=== PATIENT | female | born 1950 | race Caucasian/White ===

== ENCOUNTER → 2016-02-16 | Outpatient (CLI) | payer MEDICARE, BC ==
--- NOTE | 2016-02-19 08:41 | MM ---
Reason for exam: screening (asymptomatic). Last mammogram was performed 1 year and 1 month ago. History: Patient is postmenopausal and has history of other cancer at age 51. Took hormonal contraceptives for 1 year 6 months beginning at age 21. Took estrogen for 22 years beginning at age 34. Physical Findings: A clinical breast exam by your physician is recommended on an annual basis and results should be correlated with mammographic findings. MG 3D Screening Mammo W/Cad Bilateral CC and MLO view(s) were taken. Prior study comparison: January 16, 2015, bilateral MG 3d screening mammo w/cad. December 06, 2013, bilateral MG screening mammo w CAD. There are scattered fibroglandular densities. Finding: There are typically benign round calcifications in the right breast. There is no discrete abnormality. ASSESSMENT: Benign, BI-RAD 2 RECOMMENDATION: Routine screening mammogram of both breasts in 1 year.
== END | disposition home or self-care (01) ==
LOC: RADMAMWWP 11:45
PROVIDERS: ATTEND Internal Medicine
DX: Z12.31 Encounter for screening mammogram for malignant neoplasm of breast (principal)
CPT/HCPCS: 77052; 77063; G0202

== ENCOUNTER → 2016-09-15 | Outpatient (CLI) | payer MEDICARE, BC ==
--- NOTE | 2016-09-15 08:30 | CT ---
EXAMINATION TYPE: CT cervical spine wo con DATE OF EXAM: 09/15/2016 COMPARISON: MRI of the cervical spine dated 07/28/2015 HISTORY: Neck pain. Rule out myelopathy CT DLP: 323.20 mGycm. Automated Exposure Control for Dose Reduction was Utilized. TECHNIQUE: CT scan of the cervical spine is obtained without contrast, axial images are obtained, sa gittal and coronal reformatted images are also reviewed. FINDINGS: Cervical spine is visualized in its entirety from C1 through upper thoracic levels. No evid ence of acute fracture or dislocation. There is a reversal of the usual cervical lordosis involving t he entirety of the cervical spine with the apex at C5. There is anterolisthesis of C4 on C5 (grade 1) without fracture and therefore likely degenerative in nature. Hemangiomas are present within the C3, C4 and C5 vertebral bodies. The facets at this level are not perched or jumped and appear to be fuse d bilaterally. Prevertebral soft tissue appears within normal limits. The C1-C2 articulation is with in normal limits on the coronal images. Multilevel disc desiccation and intervertebral disc space elias rowing is noted. C2-C3: Small disc osteophyte complex and facet arthropathy. No evidence of neuroforaminal or central canal stenosis. C3-C4 : Uncovertebral hypertrophy and mild facet arthropathy create moderate left neural foraminal na rrowing and mild right neural foraminal narrowing. No evidence of disc herniation. C4-C5: There is mild facet arthropathy and uncovertebral hypertrophy without central canal stenosis o r neural foraminal narrowing. Mild disc uncovering is seen centrally from the anterolisthesis of C4 o n C5. C5-C6: There is a right central disc herniation, progressed from the prior right eccentric disc bulge contacting the ventral thecal sac and creating mild spinal canal stenosis. Uncovertebral hypertrophy at this level creates mild bilateral neural foraminal narrowing. C6-C7: There is a broad-based disc bulge creating mild spinal canal stenosis as well as facet arthrop athy and uncovertebral hypertrophy creating mild right neural foraminal narrowing and moderate left n eural foraminal narrowing. Thyroid gland is felt within normal limits. Visualized lung apices demonstrate bilateral pleural pare nchymal apical scarring and a small degree of right posterior lateral calcific pleural plaquing. Spra y artifact from dental fillings partially obscures visualization of the oropharynx. A small amount of inspissated mucosal thickening is seen within the sphenoid sinus. IMPRESSION: 1. There is no acute fracture or dislocation evident in the cervical spine. 2. Right central disc herniation at C5-C6 creating mild spinal canal stenosis and mild bilateral neur al foraminal narrowing along with degenerative changes. 3. Multilevel degenerative disc disease of the cervical spine and reversed cervical lordosis with kyp hosis centered at C5. 4. Paranasal sinus disease with inspissated mucus in the sphenoid sinus.
== END | disposition home or self-care (01) ==
LOC: RADCTMAIN 07:45
PROVIDERS: ATTEND Internal Medicine Rheumatology
DX: M48.02 Spinal stenosis, cervical region (principal); M99.71 Connective tissue and disc stenosis of intervertebral foramina of cervical region; M50.222 Other cervical disc displacement at C5-C6 level; M47.812 Spondylosis without myelopathy or radiculopathy, cervical region; M50.31 Other cervical disc degeneration, high cervical region; M40.292 Other kyphosis, cervical region
CPT/HCPCS: 72125

== ENCOUNTER → 2017-04-07 | Outpatient (CLI) | payer MEDICARE, BC ==
--- NOTE | 2017-04-07 10:57 | BD ---
EXAMINATION TYPE: MG DEXA axial skeleton. DATE OF EXAM: 04/07/2017 CLINICAL HISTORY: Postmenopausal female. Osteoporosis screening. Height: 63.5 Weight: 173 FRAX RISK QUESTIONS: Alcohol (3 or more units per day): no Family History (Parent hip fracture): no Glucocorticoids (More than 3mos): not now (Ex: prednisone, prednisolone, methylprednisolone, dexamethasone, and hydrocortisone). History of Fracture in Adulthood: yes Secondary Osteoporosis: 1. Type 1 Diabetes: no 2. Hyperthyroidism: no 3. Menopause before 45: yes 4. Malnutrition: no 5. Chronic liver disease: no Rheumatoid Arthritis: no Current Tobacco Use: no RISK FACTORS HISTORY OF: Hip Fracture (Left): yes When: 1968 History of Wrist Fracture: yes When: as child Surgery to Spine: yes; 3 times When: late , 2005, 2007 Family History of Osteoporosis: yes Active: yes Diet low in dairy products/other sources of calcium: no Postmenopausal woman: yes Take estrogen and/or progesterone medications: not now How long: age [age] Lost more than 2 inches in height since high school:no, but possibly 2 inches Frequent falls: no Poor Health: somewhat Hyperparathyroidism: no Adrenal Insufficiency: no MEDICATIONS: Prednisone or other steroids: not now How Long: on & off for several years in past Thyroid Medications: yes Which medication: Synthroid How Long: since about 1997 Osteoporosis Medications: yes Which medication: Evista How Long: over 5 years Additional Medications: blood pressure meds Additional History: fibromyalgia, arthritis, asthma EXAM MEASUREMENTS: Bone mineral densitometry was performed using the [employer] System. Bone mineral density not measured about the Lumbar spine due to 3 previous back surgeries Bone mineral density about the R hip (g/cm2): 0.671 T Score values are as follows: -----R Neck: -2.6 -----R Total: -2.6 Bone mineral density has: Decreased -6.3% since study of: 01/16/2018 IMPRESSION: Osteoporosis (T Score less than -2.5). There is increased fracture risk and therapy is usually indicated based on age. Re-Screen 1-2 years. NOTE: T-SCORE=SD OF THE YOUNG ADULT MEAN.
--- NOTE | 2017-04-08 13:34 | MM ---
Reason for exam: screening (asymptomatic). Last mammogram was performed 1 year and 2 months ago. History: Patient is postmenopausal and has history of other cancer at age 51. Took hormonal contraceptives for 1 year 6 months beginning at age 21. Took estrogen for 22 years beginning at age 34. Physical Findings: A clinical breast exam by your physician is recommended on an annual basis and results should be correlated with mammographic findings. MG 3D Screening Mammo W/Cad Bilateral CC and MLO view(s) were taken. Prior study comparison: February 16, 2016, bilateral MG 3d screening mammo w/cad. January 16, 2015, bilateral MG 3d screening mammo w/cad. The breast tissue is heterogeneously dense. This may lower the sensitivity of mammography. No suspicious abnormality. No significant changes when compared with prior studies. ASSESSMENT: Negative, BI-RAD 1 RECOMMENDATION: Routine screening mammogram of both breasts in 1 year.
== END | disposition home or self-care (01) ==
LOC: RADMAMWWP 09:27
PROVIDERS: ATTEND Internal Medicine
DX: Z12.31 Encounter for screening mammogram for malignant neoplasm of breast (principal); M81.0 Age-related osteoporosis without current pathological fracture
CPT/HCPCS: 77063; 77067; 77080

== ENCOUNTER → 2017-07-03 | Outpatient (CLI) | payer MEDICARE, BC ==
--- NOTE | 2017-07-03 16:14 | XR ---
EXAMINATION TYPE: XR foot complete RT DATE OF EXAM: 07/03/2017 COMPARISON: NONE HISTORY: Nondisplaced fracture, toes caught and/or TECHNIQUE: 3 views right foot FINDINGS: There is a fracture of the distal diaphyseal proximal phalanx fourth digit. Soft tissue swe lling is over this site. Additional soft tissue swelling is at the distal third and fifth digits. Degenerative changes are at the first metacarpal tarsal phalangeal joint space. No additional fractur es are evident. IMPRESSION: 1. Fracture of the distal diaphyseal proximal phalanx fourth digit with soft tissue swelling over th e third fourth fifth digits.
== END | disposition home or self-care (01) ==
LOC: RADXRMAIN 12:09
PROVIDERS: ATTEND Internal Medicine
DX: S92.534A Nondisplaced fracture of distal phalanx of right lesser toe(s), initial encounter for closed fracture (principal); S92.514A Nondisplaced fracture of proximal phalanx of right lesser toe(s), initial encounter for closed fracture

== ENCOUNTER → 2018-02-04 | Outpatient (CLI) | payer MEDICARE, BC ==
--- NOTE | 2018-02-04 13:17 | XR ---
EXAMINATION TYPE: XR chest 2V DATE OF EXAM: 02/04/2018 COMPARISON: March 16, 2017 HISTORY: Shortness of breath TECHNIQUE: Frontal and lateral views of the chest are obtained. FINDINGS: Scattered senescent parenchymal changes noted. Hyperinflation compatible with COPD. No evidence for infiltrate. No evidence for atelectasis. Heart size is stable. Mediastinal structures are stable and grossly unremarkable. No evidence for hilar prominence. Degenerative changes dorsal spine. IMPRESSION: 1. No evidence for acute pulmonary disease.
== END | disposition home or self-care (01) ==
LOC: RADXRMAIN 12:43
PROVIDERS: ATTEND Internal Medicine
DX: Z01.818 Encounter for other preprocedural examination (principal)
CPT/HCPCS: 71046

== ENCOUNTER → 2018-08-16 | Outpatient (CLI) | payer MEDICARE ==
--- NOTE | 2018-08-18 08:48 | MM ---
Reason for exam: screening (asymptomatic). Last mammogram was performed 1 year and 4 months ago. History: Patient is postmenopausal and has history of other cancer at age 51. Took hormonal contraceptives for 1 year 6 months beginning at age 21. Took estrogen for 22 years beginning at age 34. Physical Findings: A clinical breast exam by your physician is recommended on an annual basis and results should be correlated with mammographic findings. MG 3D Screening Mammo W/Cad Bilateral CC and MLO view(s) were taken. Prior study comparison: April 07, 2017, bilateral MG 3d screening mammo w/cad. February 16, 2016, bilateral MG 3d screening mammo w/cad. There are scattered fibroglandular densities. No significant changes when compared with prior studies. ASSESSMENT: Negative, BI-RAD 1 RECOMMENDATION: Routine screening mammogram of both breasts in 1 year.
== END | disposition home or self-care (01) ==
LOC: RADMAMWWP 14:17
PROVIDERS: ATTEND Internal Medicine
DX: Z12.31 Encounter for screening mammogram for malignant neoplasm of breast (principal)
CPT/HCPCS: 77063; 77067

== ENCOUNTER → 2018-12-23 | Outpatient (CLI) | payer MEDICARE ==
--- NOTE | 2018-12-23 16:05 | CONS ---
CONSULTATION DATE OF SERVICE: 12/23/2018 This patient is a 68-year-old lady who has been evaluated in [facility] for feeling significantly tired for several months. Her sleep schedule is usually from around 9:30 or 10 p.m. until 6:30 or 7 a.m. Usually no problems with falling asleep, although she reads in the bedroom. She usually on the back position with occasional snoring witnessed by her . She may wake up from sleep with remembering of her dreams and some episodes of sweating. She wakes up from sleep once with nocturia. Usually she does not take any naps. Lancing Sleepiness Scale is 6. PAST MEDICAL HISTORY: Past medical history is positive for hypertension, hypothyroidism, asthma, osteoporosis and scoliosis, fibromyalgia, allergies. PAST SURGICAL HISTORY: 1. x3. 2. Surgical treatment of fracture of low jaw. MEDICATIONS: 1. Singulair. 2. Synthroid. 3. Tenormin. 4. Evista. 5. Celebrex. 6. B12. 7. Cetirizine. SOCIAL HISTORY: Positive for smoking in the past; quit 35 years ago. Alcohol consumption occasional. FAMILY HISTORY: Hypertension, stroke, fibromyalgia, arthritis, asthma, thyroid problems. REVIEW OF SYSTEMS: Episodes of tiredness. Awakenings from sleep with dreaming. PHYSICAL EXAMINATION: GENERAL: A pleasant lady without distress. VITAL SIGNS: BP 162/78 on the right arm and 138/77 on the left, HR 60, RR 16, height 5 feet 3-1/2 inches, weight 169 pounds. Body mass index 29.4. Temperature 97.8, oxygen saturation at room air 96%. HEENT: PERRLA, EOMI. Evaluation of oropharynx showed tongue protrudes midline. Moderately low position of soft palate. Mallampati III. Retrognathia 3 mm. NECK: Supple. No JVD. Thyroid is not palpable. Neck measures 13-1/2 inches in circumference. LUNGS: Clear to percussion and to auscultation. Good air exchange. No wheezing or rhonchi. HEART: S1, S2 regular. No murmurs, gallops or rubs. ABDOMEN: Slightly obese. EXTREMITIES: No clubbing or cyanosis. CAFE WORKER: Awake, alert, and oriented X3. Cranial nerves 2 to 7 intact. There is no fasciculation or atrophy. noted. No focal deficits observed. IMPRESSION: 1. Occasional snoring, awakenings from sleep with nocturia, moderately low position of soft palate, retrognathia; possible obstructive sleep apnea-hypopnea syndrome. 2. Overweight; borderline to obesity, body mass index 29.4. 3. Hypertension. 4. Hypothyroidism. 5. Asthma. 6. History of osteoporosis and scoliosis. 7. History of fibromyalgia. 8. Allergies. 9. Status post section x3. 10.Status post low jaw fracture bilaterally, status post surgical treatment. PLAN: 1. Polysomnography for evaluation of patient's breathing during sleep. 2. CPAP/BiPAP titration if sleep study confirms obstructive sleep apnea-hypopnea syndrome. 3. Preferable position during sleep on the side. 4. No driving if patient feels any sleepiness. 5. I will see patient for follow up visit to explain results of testing and following plan. Thank you very much for referring this patient for consultation. Sincerely, Andrew Mora MD, PhD, FAASM Diplomat of [employer] [facility] [place] MMODL / IJN: [id number] /
== END ==
LOC: SLEEP 13:59
PROVIDERS: ATTEND Internal Medicine
DX: R35.1 Nocturia (principal); R06.83 Snoring; E66.3 Overweight; I10 Essential (primary) hypertension; E03.9 Hypothyroidism, unspecified; J45.909 Unspecified asthma, uncomplicated; M81.0 Age-related osteoporosis without current pathological fracture; M41.9 Scoliosis, unspecified; M79.7 Fibromyalgia; Z88.9 Allergy status to unspecified drugs, medicaments and biological substances; Z98.890 Other specified postprocedural states; Z68.29 Body mass index [BMI] 29.0-29.9, adult; Z87.81 Personal history of (healed) traumatic fracture; Z87.891 Personal history of nicotine dependence; Z79.899 Other long term (current) drug therapy
CPT/HCPCS: 99211

== ENCOUNTER → 2019-04-01 | Outpatient (CLI) | payer MEDICARE ==
--- NOTE | 2019-04-01 09:00 | CT ---
EXAMINATION TYPE: CT shoulder LT wo con DATE OF EXAM: 04/01/2019 COMPARISON: None HISTORY: Lt AC Joint Arthritis CT DLP: 277.[address] of the left shoulder with reconstruction imaging. TECHNIQUE: Unenhanced CT of the right shoulder was performed with bone and soft tissue window setting s submitted in the axial coronal and sagittal planes. At a separate workstation 3-D TR imaging was o btained. FINDINGS: Left-sided glenohumeral prosthesis is in place. Streak artifact limits evaluation. Glenoid component screw appears to be fractured inferiorly. Superior screw appears to be intact. Humeral pros thesis appears to be well seated. No evidence for periprosthetic infection at this time. No evidence for acute fracture. AC joint arthropathy with bony fragmentation noted. No evidence for soft tissue m ass or destructive bony process. Visualized left lung appears to be clear. IMPRESSION: 1. Postoperative changes of the glenohumeral prosthesis as discussed above. No acute fractures are ev ident.
== END | disposition home or self-care (01) ==
LOC: RADCTMAIN 07:51
PROVIDERS: ATTEND Orthopaedic Surgery
DX: Z47.1 Aftercare following joint replacement surgery (principal); M19.012 Primary osteoarthritis, left shoulder; M25.512 Pain in left shoulder; Z96.612 Presence of left artificial shoulder joint; Z98.890 Other specified postprocedural states

== ENCOUNTER → 2019-06-15 | Outpatient (CLI) | payer MEDICARE ==
[2019-06-15 12:21] LABS: HCT 42.3 % (34.0-46.0); HGB 13.5 gm/dL (11.4-16.0); MCH 30.6 pg (25.0-35.0); MCV 95.5 fL (80.0-100.0); Mean Platelet Volume 8.1; Platelet Count 294 k/uL (150-450); RBC 4.43 m/uL (3.80-5.40); RDW 12.6 % (11.5-15.5); WBC 7.4 k/uL (3.8-10.6)
[2019-06-15 12:34] LABS: Appearance,Urine Clear (Clear); Bilirubin,Urine Negative (Negative); Blood,Urine Negative (Negative); Color,Urine Yellow; Glucose,Urine (UA) Negative (Negative); Ketones,Urine Negative (Negative); Leukocyte Esterase,Urine Small (Negative); Mucus,Urine Occasional /hpf; Nitrite,Urine Negative (Negative); PH, Urine 5.5 (5.0-8.0); Protein,Urine Negative (Negative); RBC,Urine 1 /hpf (0-5); Squamous Epithelial Cell,Urine <1 /hpf (0-4); Urobilinogen,Urine <2.0 mg/dL (<2.0); WBC,Urine 8 /hpf (0-5)
[2019-06-15 18:33] LABS: African American GFR (CKD) 59.3 (60.0-200.0); Albumin 4.4 g/dL (3.80-4.90); Albumin/Globulin Ratio 1.69 (1.60-3.17); Anion Gap 11.1 mmol/L (4.00-12.00); BUN/Creat Ratio 19.09 Ratio (12.00-20.00); Calcium 9.5 mg/dL (8.7-10.3); Carbon Dioxide 25.9 mmol/L (21.6-31.8); Globulin 2.6 g/dL (1.6-3.3); Non-African American GFR(CKD) 51.2 (60.0-200.0); Potassium 4.8 mmol/L (3.5-5.5); Total Bilirubin 0.7 mg/dL (0.3-1.2)
== END | disposition home or self-care (01) ==
LOC: LABWHC1 11:38
PROVIDERS: ATTEND Internal Medicine
DX: Z01.812 Encounter for preprocedural laboratory examination (principal); R00.1 Bradycardia, unspecified
CPT/HCPCS: 36415; 80053; 81001; 85027; 87070; 93005

== ENCOUNTER → 2019-12-27 | Outpatient (CLI) | payer MEDICARE ==
--- NOTE | 2019-12-27 14:17 | BD ---
EXAMINATION TYPE: Axial Bone Density DATE OF EXAM: 12/27/2019 COMPARISON: 04/07/2017 CLINICAL HISTORY: Height: 63 IN Weight: 169 LBS FRAX RISK QUESTIONS: Secondary Osteoporosis: 3. Menopause before 45: PARTIAL HYST AGE 34 RISK FACTORS HISTORY OF: Hip Fracture (Left): AGE 18 History of Wrist Fracture: JOHN AGE 8 Surgery to Spine: 3 SURGERIES SINCE 1997 Family History of Osteoporosis: YES 2 SISTERS Active: YES Postmenopausal woman: PARTIAL HYST AGE 34 Take estrogen and/or progesterone medications: NOT NOW How long: PREVIOUSLY TOOK FOR 10 YEARS MEDICATIONS: Thyroid Medications: YES Which medication: Synthroid How Lon+ YEARS Osteoporosis Medications: YES Which medication: Evista How Lon+ Additional Medications: EVISTA, SYNTHROID, B12, CELEBREX, SINGULAIR, ATENOLOL, EXAM MEASUREMENTS: Bone mineral densitometry was performed using the [employer] System. 3 SPINE SURGERIES ON L SPINE SINCE 1997 LT HIP FX AGE 18 Bone mineral density about the R hip (g/cm2): 0.653 T Score values are as follows: -----R Neck: -2.8 -----R Total: -2.6 Bone mineral density has: Increased 0.1% since study of: 04/07/2017 JOHN WRIST FX AGE 8 IMPRESSION: Osteoporosis (T Score less than -2.5). There is increased fracture risk and therapy is usually indicated based on age. Re-Screen 1-2 years. NOTE: T-SCORE=SD OF THE YOUNG ADULT MEAN.
--- NOTE | 2019-12-29 08:25 | MM ---
Reason for exam: screening (asymptomatic). Last mammogram was performed 1 year and 4 months ago. History: Patient is postmenopausal and has history of other cancer at age 51. Took hormonal contraceptives for 1 year 6 months beginning at age 21. Took estrogen for 22 years beginning at age 34. Physical Findings: A clinical breast exam by your physician is recommended on an annual basis and results should be correlated with mammographic findings. MG 3D Screening Mammo W/Cad Bilateral CC and MLO view(s) were taken. Prior study comparison: August 16, 2018, bilateral MG 3d screening mammo w/cad. April 07, 2017, bilateral MG 3d screening mammo w/cad. There are scattered fibroglandular densities. Focal asymmetry right upper outer quadrant. This finding is changed when compared with previous exams. ASSESSMENT: Incomplete: need additional imaging evaluation, BI-RAD 0 RECOMMENDATION: Special view mammogram of the right breast. If lesion persists on supplemental views, image directed ultrasound is recommended. [facility] will attempt to contact patient to return for supplemental views and ultrasound if indicated.
== END | disposition home or self-care (01) ==
LOC: RADMAMWWP 07:52
PROVIDERS: ATTEND Internal Medicine
DX: Z12.31 Encounter for screening mammogram for malignant neoplasm of breast (principal); M81.0 Age-related osteoporosis without current pathological fracture
CPT/HCPCS: 77063; 77067; 77080

== ENCOUNTER → 2020-01-11 | Outpatient (CLI) | payer MEDICARE ==
--- NOTE | 2020-01-11 11:02 | MM ---
Reason for exam: additional evaluation requested from abnormal screening. Last mammogram was performed less than 1 month ago. History: Patient is postmenopausal and has history of other cancer at age 51. Took hormonal contraceptives for 1 year 6 months beginning at age 21. Took estrogen for 22 years beginning at age 34. Physical Findings: Nurse did not find any significant physical abnormalities on exam. MG 3D Work Up W/Cad RT Spot compression CC, spot compression MLO, and ML view(s) were taken of the right breast. Prior study comparison: December 27, 2019, bilateral MG 3d screening mammo w/cad. August 16, 2018, bilateral MG 3d screening mammo w/cad. There is no discrete abnormality. These results were verbally communicated with the patient and result sheet given to the patient on 01/11/20. ASSESSMENT: Negative, BI-RAD 1 RECOMMENDATION: Return to routine screening mammogram schedule for both breasts.
== END | disposition home or self-care (01) ==
LOC: RADMAMWWP 10:14
PROVIDERS: ATTEND Internal Medicine
DX: R92.8 Other abnormal and inconclusive findings on diagnostic imaging of breast (principal)
CPT/HCPCS: 77065; G0279; 77061

== ENCOUNTER → 2020-02-09 | Outpatient (CLI) | payer MEDICARE ==
--- NOTE | 2020-02-09 09:45 | US ---
EXAMINATION TYPE: US kidneys/renal and bladder DATE OF EXAM: 02/09/2020 COMPARISON: CLINICAL HISTORY: R94.4 Abnormal results of kidney function studies. abnormal labs. No pain. EXAM MEASUREMENTS: Right Kidney: 9.3 x 4.1 x 3.8 cm Left Kidney: 10.1 x 3.7 x 4.2 cm Right Kidney: Medial anechoic lesion at hilum - 1.1 x 1.0 cm Left Kidney: No hydronephrosis or masses seen Bladder: distended, anechoic Right jet seen IMPRESSION: 1. Small cyst may be in the peripelvic region of the right kidney.
== END | disposition home or self-care (01) ==
LOC: RADUSWWP 08:42
PROVIDERS: ATTEND Internal Medicine
DX: N28.1 Cyst of kidney, acquired (principal)
CPT/HCPCS: 76770

== ENCOUNTER → 2020-03-23 | Outpatient (CLI) | payer MEDICARE | END | disposition home or self-care (01) | LOC: LABWHC1 11:56 | PROVIDERS: ATTEND Orthopaedic Surgery | DX: M19.012 Primary osteoarthritis, left shoulder (principal); M75.102 Unspecified rotator cuff tear or rupture of left shoulder, not specified as traumatic; Z96.612 Presence of left artificial shoulder joint | CPT/HCPCS: 36415; 82306 ==

== ENCOUNTER → 2021-03-11 | Outpatient (CLI) | payer MEDICARE ==
--- NOTE | 2021-03-11 22:06 | NM ---
EXAMINATION TYPE: NM parathyroid w/spect DATE OF EXAM: 03/11/2021 COMPARISON: NONE HISTORY: Hyperparathyroidism TECHNIQUE: Following administration of 24.0 mCi Tc99m Sestamibi. Anterior projection images of the neck and ches t were obtained 10 minutes and 3.25 hours post injection. SPECT images of the neck and chest were ob tained and reconstructed in three axes. FINDINGS: Thyroid tracer washout: Delayed images demonstrate near-complete tracer washout from the thyroid. Parathyroid uptake: None. The delayed images do not demonstrate any focal abnormal persistent uptake in the region of the parathyroid glands to suggest parathyroid adenoma. Normal uptake: There is physiological tracer uptake in the parotid and submandibular glands bilateral ly. IMPRESSION: Normal parathyroid imaging study. No evidence for suspicious residual uptake to suggest mediastinal p arathyroid adenoma
== END | disposition home or self-care (01) ==
LOC: RADNMMAIN 10:45
PROVIDERS: ATTEND Internal Medicine
DX: E21.3 Hyperparathyroidism, unspecified (principal)
CPT/HCPCS: 78071; A9500

== ENCOUNTER 2021-03-27 13:56 | Day surgery (SDC) | payer MEDICARE ==
[2021-03-26 12:03] VITALS: BMI 29.2
[~2021-03-27 13:56] MED LIST: MOXIFLOXACIN HCL 0.5% DROPS 3 ML BTL OP PRN; TETRACAINE 0.5% OPHTH (PF) DROPS 4 ML BTL OP PRN; TIMOLOL 0.5% OPHTH DROPS 5 ML BTL OP PRN
[2021-03-27] MEDS: CYCLOPENTOLATE 1% OPHTH SOLN 2 ML BTL OP PRN ×3 (15:00→15:20)
[2021-03-27] MEDS: PHENYLEPHRINE 2.5% OPHTH DRP 2ML OP PRN ×3 (15:05→15:25)
[2021-03-27 15:12] VITALS: TEMP 97.2
[2021-03-27] MEDS ORDERED: LACTATED RINGERS 1,000 ML IV ONE (15:18)
[2021-03-27] MEDS ORDERED: LIDOCAINE 1% (10MG/ML) FOR IV START INTRADERMA ONE (15:31)
[2021-03-27] MEDS ORDERED: fentaNYL (PF) 50 MCG/ML 2 ML AMP ONE (16:05)
[2021-03-27] MEDS ORDERED: MIDAZOLAM 2 MG/2 ML VIAL ONE (16:05)
[2021-03-27] MEDS ORDERED: HYALURONATE SODIUM INTRAOCULAR 1 EACH SYRINGE (12MG/ML) INTRAOCULA ONE (16:21)
[2021-03-27] MEDS ORDERED: BALANCED SALT IRRIG SOLN COMB2 15 ML IRRIG.SOLN INTRAOCULA ONE (16:21)
[2021-03-27] MEDS ORDERED: LIDOCAINE 1% (PF) 10MG/ML VIAL SQ ONE (16:22)
[2021-03-27] MEDS ORDERED: EPINEPHrine (PF) 0.3 ML in BALANCED SALT IRRIG SOLN COMB2 500 ML IRRIGATION ONE (16:22)
--- NOTE | 2021-03-27 16:35 | P.OP ---
Date of Procedure: 03/27/21 Preoperative Diagnosis: NS & CS & PSC Postoperative Diagnosis: same Procedure(s) Performed: PIOL OS Implants: [id number] 15.50 Anesthesia: MAC Surgeon: Stanley Lang Pathology: none sent Condition: stable Disposition: same day Indications for Procedure: blurry vision Operative Findings: no complications
[2021-03-27 16:56] VITALS: BP 147/80; PULSE 48; RESP 16
--- NOTE | 2021-03-27 18:33 | OP ---
OPERATIVE REPORT DATE OF SURGERY: 03/27/2021 PREOPERATIVE DIAGNOSIS: Nuclear sclerosis, cortical sclerosis, posterior subcapsular cataract. POSTOPERATIVE DIAGNOSIS: Nuclear sclerosis, cortical sclerosis, posterior subcapsular cataract. OPERATION: Phacoemulsification of cataract and intraocular lens implant of the left eye ESTIMATED BLOOD LOSS: Zero. SPECIMEN TAKEN: None. NARRATIVE: After obtaining the appropriate consent, the patient was brought to the Operating Room where the patient was placed under cardiac monitoring and prepped and draped in the usual sterile manner. At the 5 o'clock position a 15 degree super sharp blade was used to create a paracentesis followed by instillation of 1% Xylocaine MPF 50:50 mix with BSS into the anterior chamber. This was followed by Amvisc to stabilize the anterior chamber. At the 3 o'clock position a self-sealing corneal flap incision was created using 2.8 mm cristian keratome. A cystotome was used to initiate a continuous tear capsulorrhexis which was completed with the Utrata forceps. A Binkhorst cannula was used to hydrodissect the lens nucleus followed by hydrodelineation. Phacoemulsification of the lens was performed utilizing phacochop in 28 seconds at 13% power. The remaining cortical material was removed using the irrigation aspiration mode followed by additional 1% Xylocaine MPF into the anterior chamber followed by viscoelastic to stabilize the capsular bag. A [employer]ch [employer] Lomb MX60E 15.5 diopter posterior chamber intraocular lens was placed into the capsular bag without difficulty. The remaining viscoelastic material was removed from the anterior chamber with the irrigation/aspiration. Balanced salt solution was used to normalize the intraocular pressure. The incision was checked for watertight integrity. The patient then received two drops of 0.5% timolol followed by two drops Vigamox, was lightly patched and shielded in the usual manner. There were no complications from the procedure. The patient tolerated the procedure well and was returned to recovery in good condition. MMODL / IJN: [id number] /
== END 2021-03-27 17:07 | disposition home or self-care (01) ==
LOC: OR 13:56
PROVIDERS: ATTEND Ophthalmology
DX: H25.12 Age-related nuclear cataract, left eye (principal)
CPT/HCPCS: 66984; C1780; J2250; J0171; J3010; J2001

== ENCOUNTER → 2021-04-08 | Outpatient (CLI) | payer MEDICARE ==
--- NOTE | 2021-04-11 10:21 | P.HOLTER ---
This is a report on the 24 hour Holter monitor Baseline EKG showed sinus rhythm. Patient remained in sinus rhythm with an average heart rate of 58 bpm. The minimum is 45 and maximum is 98. Patient had occasional APCs and PVCs. Had a brief run of SVT consisting of 5 beats. The rate of 116. No Sigmund bradycardia arrhythmias were noted. Patient diary did not mention any cardiac symptoms. Final impression: #1. Sinus rhythm. #2. Occasional APCs. #3. Occasional PVCs. #4. Short bursts of SVT . #5. No sustained ventricular arrhythmias. #6. Patient did not report any cardiac symptoms
== END | disposition home or self-care (01) ==
LOC: RADECHMAIN 07:38
PROVIDERS: ATTEND Internal Medicine
DX: I49.3 Ventricular premature depolarization (principal)
CPT/HCPCS: 93225; 93226

== ENCOUNTER → 2021-04-10 | Outpatient (CLI) | payer MEDICARE ==
[~2021-04-10] MED LIST changes: +AMINOPHYLLINE 500 MG/20 ML VIAL IV ONE; -MOXIFLOXACIN HCL 0.5% DROPS 3 ML BTL OP PRN; +REGADENOSON 0.4 MG/5 ML SYRINGE IV PRN; -TETRACAINE 0.5% OPHTH (PF) DROPS 4 ML BTL OP PRN; -TIMOLOL 0.5% OPHTH DROPS 5 ML BTL OP PRN
--- NOTE | 2021-04-10 12:24 | P.STRESS ---
- Stress Test Note Stress Test Results/Findings: Exam Performed: NM stress lexiscan cardiolite Exam Date: 04/10/21 Reason for Exam: BRADYCARDIA Height: 5 ft 3 in Weight: 74.843 kg Protocol: LEXISCAN CARDIOLITE Stage: NA Duration of Exercise: NA Resting Heart Rate: 45 Resting Blood Pressure: 114/68 Maximum Achieved Heart Rate: 88 Maximum Achieved Blood Pressure: 138/83 85% PMHR: 127 100% PMHR: 149 METS: NA Technologist Comment: Stress Test Results/Findings: This is a 70-year-old female with history of hypertension, hypercholesterolemia and COPD and smoking history, being evaluated for cardiac status. Stress data: Baseline EKG showed sinus bradycardia. Blood pressure at rest is 114/68, pulse rate of 45. A standard dose of Lexiscan was infused EKGs taken during and after infusion did not reveal any significant changes from baseline. Patient developed mild chest pressure, nausea and headache and was given Aminophyllin, IV about 100 mg. No Final impression: #1. Negative Lexiscan stress test #2. Report on the nuclear images to be provided by the radiologist
--- NOTE | 2021-04-10 14:25 | NM ---
EXAMINATION TYPE: NM stress lexiscan cardiolite DATE OF EXAM: 04/10/2021 COMPARISON: NONE HISTORY: R00.1 BRADYCARDIA, UNSPECIFIED TECHNIQUE: After the intravenous administration of 9.87 mCi Tc 99m Sestamibi - Cardiolite resting SP ECT images acquired 45 minutes post injection. The patient received 0.4mg Lexiscan, 24.0 mCi Tc 99m Sestamibi - Stress images obtained [address] injection FINDINGS: Review of stress and rest SPECT images demonstrates decreased perfusion involving the cardiac apex on stress images. Stress-induced ischemia is not excluded. Gated analysis shows normal wall motion with an estimated left ventricular ejection fraction of 66 %. IMPRESSION: I cannot exclude stress-induced ischemia involving the cardiac apex. Please correlate clinically.
== END | disposition home or self-care (01) ==
LOC: RADNMMAIN 08:40
PROVIDERS: ATTEND Internal Medicine
DX: R00.1 Bradycardia, unspecified (principal)
CPT/HCPCS: 93017; 78452; A9500; J2785

== ENCOUNTER → 2021-05-01 | Outpatient (CLI) | payer MEDICARE ==
[2021-05-01 18:27] LABS: HCT 39.7 % (37.2-46.3); HGB 12.5 g/dL (12.0-15.0); MCH 30.1 pg (27.0-32.0); MCHC 31.5 g/dL (32.0-37.0); MCV 95.7 fL (80.0-97.0); Mean Platelet Volume 10.7 fL (9.5-12.2); NRBC Per 100 WBC 0 /100 WBCS (0.0-0.0); Platelet Count 321 X 10*3/uL (140-440); RBC 4.15 X 10*6/uL (4.10-5.20); RDW 12.4 % (11.5-14.5); WBC 5.78 X 10*3/uL (4.50-10.00)
[2021-05-01 18:42] LABS: African American GFR (CKD) 65.6 (60.0-200.0); Anion Gap 11.9 mmol/L (10.00-18.00); Blood Urea Nitrogen 14.3 mg/dL (9.0-27.0); Carbon Dioxide 25.1 mmol/L (20.0-27.5); Non-African American GFR(CKD) 56.6 (60.0-200.0); Potassium 4.3 mmol/L (3.5-5.5)
== END | disposition home or self-care (01) ==
LOC: LABPAT 13:18
PROVIDERS: ATTEND Internal Medicine Interventional Cardiology
DX: Z01.812 Encounter for preprocedural laboratory examination (principal); R94.39 Abnormal result of other cardiovascular function study
CPT/HCPCS: 80051; 82565; 84520; 85027

== ENCOUNTER → 2021-11-15 | Outpatient (CLI) | payer MEDICARE ==
--- NOTE | 2021-11-18 09:17 | MM ---
Reason for Exam: Screening (asymptomatic). Last mammogram was performed 1 year(s) and 11 month(s) ago. Patient History: Menarche at age 11. First Full-Term at age 21. Hysterectomy at age 34. Postmenopausal. Patient has history of breast feeding. Other cancer, age 51. Estrogen, from age 34 until age 54. Hormonal Contraceptives for 1 year, 6 months, from age 21 until age 22. Risk Values: Valarie 5 year model risk: 1.6%. NCI Lifetime model risk: 4.1%. Prior Study Comparison: 08/16/2018 Bilateral Screening Mammogram, [facility]. 12/27/2019 Bilateral Screening Mammogram, [facility]. 01/11/2020 Right Diagnostic Mammogram, [facility]. Tissue Density: There are scattered fibroglandular densities. Findings: Analyzed By CAD. No suspicious groups of microcalcifications, spiculated or lobular masses, architectural distortion or other secondary signs of malignancy are mammographically apparent. Overall Assessment: Benign, BI-RAD 2 Management: Screening Mammogram of both breasts in 1 year. A negative mammogram report should not preclude additional follow up of suspicious palpable abnormalities. Patient should continue monthly self breast exam. A clinical breast exam by your physician is recommended on an annual basis and results should be correlated with mammographic findings. Electronically signed and approved by: Austin Fajardo D.O. Radiologis
== END | disposition home or self-care (01) ==
LOC: RADMAMWWP 14:42
PROVIDERS: ATTEND Internal Medicine
DX: Z12.31 Encounter for screening mammogram for malignant neoplasm of breast (principal)
CPT/HCPCS: 77063; 77067

== ENCOUNTER → 2022-03-11 | Outpatient (CLI) | payer MEDICARE ==
[2022-03-11 15:38] LABS: LDL Cholesterol,Calculated 72.9 mg/dL (0.0-131.0); VLDL Calculation 10.76 mg/dL (5.00-40.00)
== END | disposition home or self-care (01) ==
LOC: LABWHC1 08:43
PROVIDERS: ATTEND Nurse Practitioner Adult Health
DX: E78.2 Mixed hyperlipidemia (principal)
CPT/HCPCS: 36415; 80061

== ENCOUNTER → 2022-11-20 | Outpatient (CLI) | payer MEDICARE ==
--- NOTE | 2022-11-20 15:01 | BD ---
EXAMINATION TYPE: Axial Bone Density DATE OF EXAM: 11/20/2022 CLINICAL HISTORY: 72 years old Female. ICD-10 CODE: M81.0 age related osteoporosis Height: 63.5 inches Weight: 166.0 pounds FRAX RISK QUESTIONS: Family History (Parent hip fracture): no History of Fracture in Adulthood: yes, bilat wrist, left hip Secondary Osteoporosis: yes 3. Menopause before 45: yes, 32 Rheumatoid Arthritis: no RISK FACTORS HISTORY OF: Hip Fracture (Left): yes When: 1968 Spine Fracture: yes,x3 When: 2005 History of Wrist Fracture: yes, bilateral When: long ago Surgery to Spine/Hip(left)): yes When: 1989, 2005 2007 Family History of Osteoporosis: yes, father,2 sisters Active: yes Diet low in dairy products/other sources of calcium: no Postmenopausal woman: yes Lost more than 2 inches in height since high school: no Frequent falls: no Poor Health: no MEDICATIONS: Thyroid Medications: yes Which medication: Synthroid How Lon+ years Osteoporosis Medications: yes Which medication: Prolia How Lon+ years Additional Medications: yes hbp meds, asthma meds, cholesterol meds, baby aspirin EXAM MEASUREMENTS: Bone mineral densitometry was performed using the FiNC System. Bone mineral density about the R hip (g/cm2): 0.710 T Score values are as follows: -----R Neck: -2.3 -----R Total: -2.4 Z Score values are as follows: -----R Neck: -0.7 -----R Total: -1.0 Bone mineral density has: Increased 4.1% since study of: 12/27/2019 FRAX%s: The graph provided illustrates a 34.8% chance for a major osteoporotic fx and a 17.6% chance for the hips probability for fx in 10 years time. IMPRESSION: Osteopenia (T Score between -2.5 and -1). There is slightly increased risk of fracture and the patient may be considered for treatment. Re-Screen 2-5 years. NOTE: T-SCORE=SD OF THE YOUNG ADULT MEAN.
--- NOTE | 2022-11-21 11:35 | MM ---
Reason for Exam: Screening (asymptomatic). Last screening mammogram was performed 12 month(s) ago. Patient History: Menarche at age 11. First Full-Term at age 21. Hysterectomy at age 34. Postmenopausal. Patient has history of breast feeding. Other cancer, age 51. Estrogen, from age 34 until age 54. Hormonal Contraceptives for 6 months from age 21 until age 22. Risk Values: Valarie 5 year model risk: 1.6%. NCI Lifetime model risk: 3.9%. Prior Study Comparison: 02/16/2016 Bilateral Screening Mammogram, [facility]. 04/07/2017 Bilateral Screening Mammogram, [facility]. 08/16/2018 Bilateral Screening Mammogram, [facility]. 12/27/2019 Bilateral Screening Mammogram, [facility]. 01/11/2020 Right Diagnostic Mammogram, [facility]. 11/15/2021 Bilateral MG 3D screening mammo w/cad, [facility]. Tissue Density: There are scattered fibroglandular densities. Findings: Analyzed By CAD. There is no suspicious group of microcalcifications or new suspicious mass in either breast. Overall Assessment: Negative, BI-RAD 1 Management: Screening Mammogram of both breasts in 1 year. . Patient should continue monthly self-breast exams. A clinical breast exam by your physician is recommended on an annual basis. This exam should not preclude additional follow-up of suspicious palpable abnormalities. Note on Valarie scores and lifetime risk: 1. A Valarie score greater than 3% is considered moderate risk. If this is the case, consider specialist referral to assess eligibility for a risk reducing agent. 2. If overall lifetime risk for the development of breast cancer is 20% or higher, the patient may qualify for future screening with alternating mammogram and breast MRI. Electronically signed and approved by: Ad Cortez M.D. Radiologis
== END | disposition home or self-care (01) ==
LOC: RADMAMWWP 13:35
PROVIDERS: ATTEND Internal Medicine
DX: Z12.31 Encounter for screening mammogram for malignant neoplasm of breast (principal); M81.0 Age-related osteoporosis without current pathological fracture; Z78.0 Asymptomatic menopausal state
CPT/HCPCS: 77063; 77067; 77080

== ENCOUNTER → 2023-01-08 | Outpatient (CLI) | payer MEDICARE ==
--- NOTE | 2023-01-08 13:46 | XR ---
EXAMINATION TYPE: XR Hip LT and AP Pelvis DATE OF EXAM: 01/08/2023 CLINICAL HISTORY: pain TECHNIQUE: AP and frogleg views of the left hip are obtained. COMPARISON: None. FINDINGS: Postoperative changes left hip. There is no acute fracture/dislocation evident. The joint space appears within normal limits. The overlying soft tissue appears unremarkable. IMPRESSION: 1. There is no acute fracture or dislocation.ICD 10 NO FRACTURE, INITIAL EVALUATION
== END | disposition home or self-care (01) ==
LOC: RADXRMAIN 13:14
PROVIDERS: ATTEND Internal Medicine
DX: M25.752 Osteophyte, left hip (principal)
CPT/HCPCS: 73502

== ENCOUNTER → 2023-03-09 | Outpatient (CLI) | payer MEDICARE ==
--- NOTE | 2023-03-09 15:30 | NM ---
EXAMINATION TYPE: NM parathyroid w/spect DATE OF EXAM: 03/09/2023 COMPARISON: NONE CLINICAL INDICATION: Female, 72 years old with history of R79.89 ELEVATED PARATHYROID HORMONE; TECHNIQUE: Following administration of 25.0 mCi Tc99m Sestamibi. Anterior projection images of the neck and ches t were obtained 10 minutes and 3 hours post injection. SPECT images of the neck and chest were obtai derek and reconstructed in three axes. FINDINGS: Thyroid tracer washout: Delayed images demonstrate near-complete tracer washout from the thyroid. Parathyroid uptake: None. The two-hour delayed images do not demonstrate any focal abnormal persisten t uptake in the region of the parathyroid glands to suggest parathyroid adenoma. Normal uptake: There is physiological tracer uptake in the myocardium, liver, salivary glands, and th yroid gland. IMPRESSION: Normal parathyroid imaging study. No evidence for mediastinal uptake to suggest mediastinal parathyro id adenoma
== END | disposition home or self-care (01) ==
LOC: RADNMMAIN 10:42
PROVIDERS: ATTEND Internal Medicine
DX: R79.89 Other specified abnormal findings of blood chemistry (principal)
CPT/HCPCS: 78071; A9500

== ENCOUNTER → 2023-04-30 | Outpatient (CLI) | payer MEDICARE ==
[2023-04-30 16:09] LABS: ALT 22 U/L (8-44); AST 18 U/L (13-35); Albumin 4.5 g/dL (3.8-4.9); Albumin/Globulin Ratio 1.73 Ratio (1.60-3.17); Alkaline Phosphatase 72 U/L (41-126); BUN/Creat Ratio 27.82 Ratio (12.00-20.00); Blood Urea Nitrogen 30.6 mg/dL (9.0-27.0); Calcium 9.9 mg/dL (8.7-10.3); Carbon Dioxide 26.3 mmol/L (21.6-31.8); Chloride 107 mmol/L (96-109); Chol/HDL Ratio 2.29 Ratio; Globulin 2.6 g/dL (1.6-3.3); Glucose 101 mg/dL (70-110); LDL Cholesterol,Calculated 62.4 mg/dL (0.0-131.0); Sodium 143 mmol/L (135-145); Total Bilirubin 0.5 mg/dL (0.3-1.2); Total Protein 7.1 g/dL (6.2-8.2); VLDL Calculation 11.38 mg/dL (5.00-40.00)
== END | disposition home or self-care (01) ==
LOC: LABWHC1 08:54
PROVIDERS: ATTEND Internal Medicine Interventional Cardiology
DX: E78.2 Mixed hyperlipidemia (principal)
CPT/HCPCS: 36415; 80053; 80061

== ENCOUNTER → 2023-06-05 | Outpatient (CLI) | payer MEDICARE ==
[2023-06-05 15:39] LABS: African American GFR (CKD) 59 (>60 ml/min/1.73 sqM); Blood Urea Nitrogen 22 mg/dL (7-17); Non-African American GFR(CKD) 51 (>60 ml/min/1.73 sqM)
--- NOTE | 2023-06-05 18:16 | CT ---
EXAMINATION TYPE: CT abdomen pelvis w con DATE OF EXAM: 06/05/2023 COMPARISON: 12/20/2015 HISTORY: Lower abdominal pain with constipation CT DLP: 1535.6 mGycm Automated exposure control for dose reduction was used. TECHNIQUE: Helical acquisition of images was performed from the lung bases through the pelvis. CONTRAST: Performed with Oral Contrast and with IV Contrast, patient injected with 80 mL of Isovue 300. FINDINGS: There are mild chronic interstitial changes in the left lung base There is surgical absence of the gallbladder.. There is no biliary ductal dilatation. There is no focal mass or organomegaly involving the liver, pancreas, spleen or adrenal glands. There is no solid renal mass or hydronephrosis and there is homogeneous contrast enhancement of the r enal parenchyma. The caliber the abdominal aorta is normal is no retroperitoneal adenopathy or hemorr reynaldo. The bowel loops are normal in caliber and there is no evidence of dilatation or obstruction. No infla mmatory changes are identified in the bowel wall or mesentery. There is no free intraperitoneal air or fluid. No pelvic mass, free fluid, abscess or adenopathy. There is surgical absence of the uterus. There is extensive postsurgical change in the lumbar spine with laminectomy and fusion. There is a le ft femoral neck fixation screw. No focal osseous lesions are seen. IMPRESSION: 1. No acute changes within the abdomen or pelvis. 2. Postsurgical changes as described above
== END | disposition home or self-care (01) ==
LOC: RADCTMAIN 14:52
PROVIDERS: ATTEND Internal Medicine
DX: R10.9 Unspecified abdominal pain (principal); K59.00 Constipation, unspecified; Z90.49 Acquired absence of other specified parts of digestive tract
CPT/HCPCS: 82565; 84520; 74177; 36415; Q9967

== ENCOUNTER 2023-07-12 14:04 | Emergency (ER) | payer MEDICARE ==
--- NOTE | 2023-07-12 14:12 | ED ---
Fall HPI - General Source: patient Mode of arrival: ambulatory Limitations: no limitations - History of Present Illness MD Complaint: fall <Yarelis Pink - Last Filed: 07/12/23 14:12> <Kianna Howard - Last Filed: 07/12/23 16:30> - General Chief Complaint: Fall Stated Complaint: L knee pain Time Seen by Provider: 07/12/23 14:11 - History of Present Illness Initial Comments: Quick Note: This is a 72-year-old female who presents to the emergency department for a fall. Earlier today patient tripped and fell on concrete. The majority of the pain is to the left knee, however she does also have discomfort to the right knee, both hips, and lower back. Denies hitting her head or any loss of consciousness. Not taking any blood thinners. (Yarelis Pink) 72-year-old female presenting to the ER with chief complaint of left knee pain status post mechanical fall earlier today. States she tripped and fell directly onto concrete. She is able to weight-bear. Denies hitting head, losing consciousness, or blood thinners. Most of the pain is on the anterior left knee however also admits some generalized pain on both hips and the lower back. Tylenol has been helping the pain. (Kianna Howard) - Related Data Home Medications Medication Instructions Recorded Confirmed Calcium Carbonate [Calcium] 600 mg PO DAILY 02/21/15 05/15/21 Cetirizine HCl [Zyrtec] 10 mg PO HS 02/21/15 05/15/21 Cholecalciferol [Vitamin D3 (25 25 mcg PO DAILY 02/21/15 05/15/21 Mcg = 1000 Iu)] Cyanocobalamin [Vitamin B-12] 500 mcg PO DAILY@1200 02/21/15 05/15/21 Levothyroxine Sodium [Synthroid] 100 mcg PO MOTUWETHFRSA 02/21/15 05/15/21 Montelukast [Singulair] 10 mg PO DAILY 02/21/15 05/15/21 Levothyroxine Sodium 200 mcg PO GRAF 03/01/21 05/15/21 Aspirin EC [Ecotrin Low Dose] 81 mg PO DAILY 05/13/21 05/15/21 Previous Rx's Medication Instructions Recorded Atorvastatin [Lipitor] 40 mg PO HS #0 05/15/21 Clopidogrel Bisulfate [Plavix] 75 mg PO DAILY #90 tab 05/15/21 Nitroglycerin Sl Tabs [Nitrostat] 0.4 mg SUBLINGUAL Q5M PRN #25 tab 05/15/21 Allergies Allergy/AdvReac Type Severity Reaction Status Date / Time Latex, Natural Rubber Allergy Rash/Hives Verified 07/12/23 14:29 morphine Allergy Rash/Hives Verified 07/12/23 14:29 Penicillins Allergy Rash/Hives Verified 07/12/23 14:29 tramadol Allergy Nausea & Verified 07/12/23 14:29 Vomiting hydromorphone HCl AdvReac Nausea & Verified 07/12/23 14:29 [From Dilaudid] Vomiting meperidine HCl [From Demerol] AdvReac Nausea & Verified 07/12/23 14:29 Vomiting Review of Systems ROS Other: All systems not noted in ROS Statement are negative. <Yarelis Pink - Last Filed: 07/12/23 14:12> ROS Other: All systems not noted in ROS Statement are negative. <Kianna Howard - Last Filed: 07/12/23 16:30> ROS Statement: Those systems with pertinent positive or pertinent negative responses have been documented in the HPI. Past Medical History Past Medical History: Asthma, Cancer, Eye Disorder, Fibromyalgia, Hyperlipidemia, Hypertension, Thyroid Disorder Additional Past Medical History / Comment(s): hx. colon polyps, hx. skin cancer, BILAT CATARACTS History of Any Multi-Drug Resistant Organisms: None Reported Past Surgical History: Back Surgery, Section, Cholecystectomy, Hysterectomy, Orthopedic Surgery Additional Past Surgical History / Comment(s): back surg. x 3, shoulder surg., left hip surg., left thumb surg., surg. for broken jaw,COLONOSCOPY Past Anesthesia/Blood Transfusion Reactions: Postoperative Nausea & Vomiting (PONV) Past Alcohol Use History: Occasional Additional Past Alcohol Use History / Comment(s): quit smoking 40 yrs. ago, smoked for 5 yrs. - Past Family History Mother Family Medical History: Deep Vein Thrombosis (DVT) <Yarelis Pink - Last Filed: 07/12/23 14:12> General Exam <Yarelis Pink - Last Filed: 07/12/23 14:12> General appearance: alert, in no apparent distress Head exam: Present: atraumatic, normocephalic, normal inspection Eye exam: Present: normal appearance, PERRL, EOMI. Absent: scleral icterus, conjunctival injection, periorbital swelling ENT exam: Present: normal exam, mucous membranes moist Neck exam: Present: normal inspection. Absent: tenderness, meningismus, lymphadenopathy Respiratory exam: Present: normal lung sounds bilaterally. Absent: respiratory distress, wheezes, rales, rhonchi, stridor Cardiovascular Exam: Present: regular rate, normal rhythm, normal heart sounds. Absent: systolic murmur, diastolic murmur, rubs, gallop, clicks Right Hip exam: Present: normal inspection, full ROM. Absent: tenderness, swelling Upper Leg exam: Present: normal inspection, full ROM. Absent: tenderness, swelling Knee exam: Present: normal inspection, full ROM. Absent: tenderness, swelling, abrasion, laceration, deformity Lower Leg exam: Present: normal inspection, full ROM. Absent: tenderness, swelling Ankle exam: Present: normal inspection, full ROM. Absent: tenderness, swelling Foot/Toe exam: Present: normal inspection, full ROM. Absent: tenderness, swelling Neurovascular tendon exam: Present: no vascular compromise. Absent: pulse deficit, abnormal cap refill, sensory deficit Left Hip exam: Present: normal inspection, full ROM. Absent: tenderness, swelling Upper Leg exam: Present: normal inspection, full ROM. Absent: tenderness, swelling Knee exam: Present: full ROM, tenderness, swelling (Negative valgus and varus, negative Radha). Absent: normal inspection (Mild edema anterior knee below the patella, mild tenderness to palpation) Lower Leg exam: Present: normal inspection, full ROM. Absent: tenderness, swelling Ankle exam: Present: normal inspection, full ROM. Absent: tenderness, swelling Foot/Toe exam: Present: normal inspection, full ROM. Absent: tenderness, swelling Neurovascular tendon exam: Present: no vascular compromise. Absent: pulse deficit, abnormal cap refill, motor deficit, sensory deficit <Kianna Howard - Last Filed: 07/12/23 16:30> - General Exam Comments Initial Comments: Visual Physical Exam Vital signs reviewed General: Well-appearing, nontoxic, no acute distress. Head: Normocephalic, atraumatic Eyes: PERRLA, EOMI ENT: Airway patent Chest: Nonlabored breathing Skin: No visual rash, normal skin tone Neuro: Alert and oriented 3 Musculoskeletal: No gross abnormalities (Yarelis Pink) Course Vital Signs 07/12/23 07/12/23 14:26 16:24 Temperature 97.9 F Pulse Rate 66 60 Respiratory 18 18 Rate Blood Pressure 165/77 139/79 O2 Sat by Pulse 99 98 Oximetry Medical Decision Making <Yarelis Pink - Last Filed: 07/12/23 14:12> <Kianna Howard - Last Filed: 07/12/23 16:30> - Medical Decision Making I performed the QuickNote portion of this chart. Signed Yarelis Pink PA-C. (Yarelis Pink) Was pt. sent in by a medical professional or institution (NEIL Roberson, PHYSICIAN EXECUTIVE, urgent care, hospital, or detention...) When possible be specific @ -No Did you speak to anyone other than the patient for history (EMS, parent, family, police, friend...)? What history was obtained from this source @ -No Did you review nursing and triage notes (agree or disagree)? Why? @ -I reviewed and agree with nursing and triage notes Were old charts reviewed (outside hosp., previous admission, EMS record, old EKG, old radiological studies, urgent care reports/EKG's, detention records)? Report findings @ -No old charts were reviewed Differential Diagnosis (chest pain, altered mental status, abdominal pain women, abdominal pain men, vaginal bleeding, weakness, fever, dyspnea, syncope, headache, dizziness, GI bleed, back pain, seizure, CVA, palpatations, mental health, musculoskeletal)? @ -Differential Musculoskeletal Muscular strain, contusion, ligament sprain, fracture, arthritis, septic arthritis, bursitis, cellulitis, muscle spasm, nerve compression, DVT, arterial occlusion, herpes zoster, electrolyte abnormality, tumor.... This is not meant to be in all inclusive list EKG interpreted by me (3pts min.). @ -None X-rays interpreted by me (1pt min.). @ -X-ray of left knee, bilateral hips, and low back all negative for acute process CT interpreted by me (1pt min.). @ -None done U/S interpreted by me (1pt. min.). @ -None done What testing was considered but not performed or refused? (CT, X-rays, U/S, labs)? Why? @ -None What meds were considered but not given or refused? Why? @ -None Did you discuss the management of the patient with other professionals (professionals i.e. , PA, PHYSICIAN EXECUTIVE, lab, RT, psych nurse, health care social worker, fisher purse seine, teacher, juvenile probation officer, pillowcase cleaner)? Give summary @ -No Was smoking cessation discussed for >3mins.? @ -No Was critical care preformed (if so, how long)? @ -No Were there social determinants of health that impacted care today? How? (Homelessness, low income, unemployed, alcoholism, drug addiction, transportation, low edu. Level, literacy, decrease access to med. care, longterm, rehab)? @ -No Was there de-escalation of care discussed even if they declined (Discuss DNR or withdrawal of care, Hospice)? DNR status @ -No What co-morbidities impacted this encounter? (DM, HTN, Smoking, COPD, CAD, Cancer, CVA, ARF, Chemo, Hep., AIDS, mental health diagnosis, sleep apnea, morbid obesity)? @ -None Was patient admitted / discharged? Hospital course, mention meds given and route, prescriptions, significant lab abnormalities, going to OR and other pertinent info. @ -Patient was discharged. Patient was seen and evaluated for left knee pain status post mechanical fall onto concrete earlier today. Patient did not lose consciousness or hit head. Denies blood thinners. Patient is able to weight- bear. Patient is neurovascularly intact. X-ray of left knee, bilateral hips, and low back revealed no acute process or fracture. Capmbell wrap applied to left knee. Supportive care discussed. Diagnosis of left knee strain discussed. Strict return/alarm symptoms discussed with patient in detail and she shows understanding and agrees with plan. Patient discharged in stable condition. Case discussed with Dr. Mcgovern Undiagnosed new problem with uncertain prognosis? @ -No Drug Therapy requiring intensive monitoring for toxicity (Heparin, Nitro, Insulin, Cardizem)? @ -No Were any procedures done? @ -No Diagnosis/symptom? @ -Left knee strain Acute, or Chronic, or Acute on Chronic? @ -Acute Uncomplicated (without systemic symptoms) or Complicated (systemic symptoms)? @ -Uncomplicated Side effects of treatment? @ -No Exacerbation, Progression, or Severe Exacerbation? @ -No Poses a threat to life or bodily function? How? (Chest pain, [place], [place], pneumonia, PE, COPD, DKA, ARF, appy, cholecystitis, CVA, Diverticulitis, Homicidal, Suicidal, threat to staff... and all critical care pts) @ -No (Kianna Howard) Disposition <Yarelis Pink - Last Filed: 07/12/23 14:12> Is patient prescribed a controlled substance at d/c from ED?: No Time of Disposition: 16:13 <Kianna Howard - Last Filed: 07/12/23 16:30> Clinical Impression: Strain of left knee Disposition: HOME SELF-CARE Condition: Stable Instructions (If sedation given, give patient instructions): Knee Sprain (ED) Additional Instructions: Please return to the Emergency Department if symptoms worsen or any other concerns. Referrals: Deepak Strange MD [Primary Care Provider] - 1-2 days
[2023-07-12 14:58] VITALS: RESP 18; TEMP 97.9
--- NOTE | 2023-07-12 15:07 | XR ---
EXAMINATION TYPE: XR chest 2V DATE OF EXAM: 07/12/2023 3:02 PM CLINICAL INDICATION:Female, 72 years old with history of Fall; [facility] COMPARISON: Chest radiographs from 02/04/2018 TECHNIQUE: XR chest 2V Frontal and lateral views of the chest. FINDINGS: Lungs/Pleura: There is no evidence of pleural effusion, focal consolidation, or pneumothorax. Pulmonary vascularity: Unremarkable. Heart/mediastinum: Cardiomediastinal silhouette is unremarkable. Musculoskeletal: No acute osseous pathology. Left shoulder arthroplasty. Scoliosis changes of the spi ne. Lower lumbar fixation changes of the spine with hardware intact. Severe degeneration changes of the right shoulder with hardening humerus possibly related to rotator cuff injury. Cholecystectomy clips. IMPRESSION: No acute cardiopulmonary disease/process.
--- NOTE | 2023-07-12 15:08 | XR ---
EXAMINATION TYPE: XR Hip Bilateral Complete DATE OF EXAM: 07/12/2023 3:02 PM CLINICAL INDICATION:Female, 72 years old with history of Fall; COMPARISON: None. TECHNIQUE: XR Hip Bilateral Complete; hip was examined in the frontal and lateral projections and a A P pelvis. FINDINGS: No evidence for acute process, joint dislocation or significant soft tissue swelling. Osteo phyte formation of the superior acetabulum of the hip. There is mild joint space narrowing. Fixation changes to the left hip hardware appears intact. IMPRESSION: 1. No evidence for acute process. 2. Mild bilateral hip osteoarthrosis.
--- NOTE | 2023-07-12 15:09 | XR ---
EXAMINATION TYPE: XR knee complete bilateral DATE OF EXAM: 07/12/2023 3:02 PM CLINICAL INDICATION:Female, 72 years old with history of Fall; [facility] COMPARISON: None. TECHNIQUE: XR knee complete bilateral; examined in Frontal, lateral and oblique projections. FINDINGS: No evidence of any acute osseous pathology, soft tissue swelling, or joint effusion is no prachi. Left knee arthroplasty changes. Hardware appears intact. Left fibula. Moderate to severe degeneration changes of the right knee with joint space narrowing osteophyte formation present. IMPRESSION: 1. No acute osseous pathology. 2. Left total knee arthroplasty changes with hardware intact. 3. Moderate to severe right tricompartmental osteoarthritic changes.
--- NOTE | 2023-07-12 15:11 | XR ---
EXAMINATION TYPE: XR lumbar spine 2 or 3V DATE OF EXAM: 07/12/2023 3:02 PM CLINICAL INDICATION:Female, 72 years old with history of Fall; [facility] COMPARISON: 06/05/2023. TECHNIQUE: XR lumbar spine 2 or 3V - Frontal, lateral and coned in L5-S1 lateral views of the spine. FINDINGS: Fixation changes at L2 and L3 appear intact. Fixation hardware at L5-S1 appears intact. No evidence of any acute osseous pathology. No evidence of loss of vertebral body height is seen. There is normal alignment of the lumbar vertebral bodies. Mild scattered disc space narrowing. Multilevel marginal osteophyte formation throughout the visualized spine. There is facet joint arthropathy throu ghout the spine. Scattered at least mild neural foraminal stenosis. The osseous fusion of the posteri or elements noted on the lateral view. Upper quadrant cholecystectomy clips. Left upper quadrant poss ible partially calcified aneurysm measuring up to 21 mm IMPRESSION: 1. No acute fracture. 2. Post surgical changes with hardware intact with moderate multilevel disc degeneration.
[2023-07-12 16:30] VITALS: BP 139/79; PULSE 60
== END 2023-07-12 16:26 | disposition home or self-care (01) ==
LOC: EC 14:04
DX: S86.912A Strain of unspecified muscle(s) and tendon(s) at lower leg level, left leg, initial encounter (principal); Z91.040 Latex allergy status; Z88.0 Allergy status to penicillin; Z88.5 Allergy status to narcotic agent; Z88.8 Allergy status to other drugs, medicaments and biological substances; Z87.891 Personal history of nicotine dependence; Z90.49 Acquired absence of other specified parts of digestive tract; W01.0XXA Fall on same level from slipping, tripping and stumbling without subsequent striking against object, initial encounter
CPT/HCPCS: 71046; 72100; 73521; 99284

== ENCOUNTER → 2023-07-21 | Outpatient (CLI) | payer MEDICARE ==
--- NOTE | 2023-07-21 16:44 | US ---
EXAMINATION TYPE: US transvaginal DATE OF EXAM: 07/21/2023 COMPARISON: CT abdomen and pelvis 06/05/2023 CLINICAL INDICATION: Female, 72 years old with history of R10.2 PELVIC AND PERINEAL PAIN; Pelvic pain , partial hysterectomy 40 years ago TECHNIQUE: Transvaginal (TV). Date of LMP: unknown EXAM MEASUREMENTS: Uterus: Surgically absent Endometrial Stripe: Surgically absent Right Ovary: obscured by overlying bowel gas Left Ovary: obscured by overlying bowel gas 1. Uterus: Surgically absent 2. Endometrium: Surgically absent 3. Right Ovary: Obscured by overlying bowel gas 4. Left Ovary: Obscured by overlying bowel gas 5. Bilateral Adnexa: appears wnl Uterus is surgically absent. No free fluid. Both ovaries are obscured by overlying bowel gas. IMPRESSION: 1. No ultrasound evidence for abnormality. 2. Post hysterectomy changes. 3. Nonvisualization of both ovaries due to overlying bowel gas.
== END | disposition home or self-care (01) ==
LOC: RADUSWWP 15:23
PROVIDERS: ATTEND Internal Medicine
DX: R10.2 Pelvic and perineal pain (principal); Z90.710 Acquired absence of both cervix and uterus
CPT/HCPCS: 76830

== ENCOUNTER → 2023-09-21 | Outpatient (CLI) | payer MEDICARE ==
--- NOTE | 2023-10-17 19:06 | US ---
Patient: Georgette Hernadez Ordering Physician: Unknown, Unknown ID: [id number] Phone, Pager: Phone: N/A P ager: N/A : 1950 Age/Gender: 73Y, F Primary Location: N/A Procedure: US RENALS AND BLADDER [facility] Date: 09/21/2023 2:31:00 PM EXAMINATION TYPE: US renals and bladder DATE OF EXAM: 10/04/2023 COMPARISON: NONE CLINICAL INDICATION: Unknown, old with history of ; EXAM MEASUREMENTS: Right Kidney: 9.6 x 3.8 cm Left Kidney: 10.8 x 4.5 cm Post Void Residual Volume: mL Right Kidney: No hydronephrosis or masses seen Left Kidney: No hydronephrosis or masses seen Bladder: wnl Bilateral Jets seen: Yes There is no evidence for hydronephrosis at this point in time. No nephrolithiasis is seen. No seth s are identified. The urinary bladder is anechoic. Bilateral ureteral jets are seen. IMPRESSION: No evidence for obstructive uropathy or renal calculus.
== END | disposition home or self-care (01) ==
LOC: RADUSWWP 12:00
PROVIDERS: ATTEND Internal Medicine
DX: N18.31 Chronic kidney disease, stage 3a (principal)
CPT/HCPCS: 76770

== ENCOUNTER 2023-09-24 00:52 | Emergency (ER) | payer MEDICARE ==
[2023-09-24] MEDS ORDERED: IPRATROPIUM-ALBUTEROL 3 ML NEB ONE (02:05)
[2023-09-24] MEDS ORDERED: methylPREDNISolone SOD SUCCI 125 MG/2 ML VIAL ONE (02:09)
[2023-09-24] MEDS ORDERED: guaiFENesin 600 MG TABLET.ER PO ONE (02:09)
--- NOTE | 2023-10-29 08:53 | CT ---
EXAM: CT Angiography Chest With Intravenous Contrast CLINICAL HISTORY: july 11 pt fell and hurt ribs. best possible imaging due to pt unable to stop shaking. TECHNIQUE: Axial computed tomographic angiography images of the chest with intravenous contrast. CTDI is 20.6 mGy and DLP is 360.6 mGy-cm. This CT exam was performed using one or more of the following dose reduction techniques: automated exposure control, adjustment of the mA and/or kV according to patient size, and/or use of iterative reconstruction technique. MIP reconstructed images were created and reviewed. COMPARISON: No relevant prior studies available. FINDINGS: LUNGS:No focal consolidation, pleural effusion, or pneumothorax. Atelectasis at the lung bases. HEART:No cardiomegaly. VASCULATURE:No acute pulmonary embolism. Atherosclerotic changes of the aorta. THYROID: Within normal limits. MEDIASTINUM & LYMPH NODES: There are no pathologically enlarged mediastinal, hilar, or axillary lymph nodes. SUPERIOR ABDOMEN:Hepatic steatosis. Cholecystectomy. MUSCULOSKELETAL:Degenerative changes. Left shoulder reverse arthroplasty. IMPRESSION: No acute pulmonary embolism. Radiologist: Evin Bedolla MD Electronically Signed: 09/24/23 04:59 Study ready at 03:42 and initial results transmitted at 04:59 [facility]
== END 2023-09-24 08:50 | disposition home or self-care (01) ==
LOC: EC 00:52
CPT/HCPCS: 71275; 93005; 94640; 96374; 99285

== ENCOUNTER → 2023-10-05 | Outpatient (CLI) | payer MEDICARE ==
[2023-10-05 16:26] LABS: ALT 39 U/L (8-44); AST 20 U/L (13-35); Chol/HDL Ratio 2.37 Ratio; LDL Cholesterol,Calculated 56.6 mg/dL (0.0-131.0); VLDL Calculation 14.56 mg/dL (5.00-40.00)
== END | disposition home or self-care (01) ==
LOC: LABWHC1 08:37
PROVIDERS: ATTEND Internal Medicine Interventional Cardiology
DX: E78.2 Mixed hyperlipidemia (principal)
CPT/HCPCS: 36415; 80061; 84450; 84460

== ENCOUNTER → 2023-11-23 | Outpatient (CLI) | payer MEDICARE ==
--- NOTE | 2023-11-24 08:24 | MM ---
Reason for Exam: Screening (asymptomatic). Last screening mammogram was performed 12 month(s) ago. Patient History: Menarche at age 11. First Full-Term at age 21. Hysterectomy at age 34. Postmenopausal. Patient has history of breast feeding. Other cancer, age 51. Estrogen, from age 34 until age 54. Hormonal Contraceptives for 6 months from age 21 until age 22. Risk Values: Valarie 5 year model risk: 1.6%. NCI Lifetime model risk: 3.7%. Prior Study Comparison: 01/11/2020 Right Diagnostic Mammogram, [facility]. 11/15/2021 Bilateral MG 3D screening mammo w/cad, [facility]. 11/20/2022 Bilateral MG 3D screening mammo w/cad, [facility]. Tissue Density: The breasts are heterogeneously dense, which may obscure small masses. Findings: Analyzed By CAD. There is no suspicious group of microcalcifications or new suspicious mass in either breast. Benign-appearing calcifications. Overall Assessment: Benign, BI-RAD 2 Management: Screening Mammogram of both breasts in 1 year. . Patient should continue monthly self-breast exams. A clinical breast exam by your physician is recommended on an annual basis. This exam should not preclude additional follow-up of suspicious palpable abnormalities. Note on Valarie scores and lifetime risk: 1. A Valarie score greater than 3% is considered moderate risk. If this is the case, consider specialist referral to assess eligibility for a risk reducing agent. 2. If overall lifetime risk for the development of breast cancer is 20% or higher, the patient may qualify for future screening with alternating mammogram and breast MRI. [facility], , 11/24/2023 8:21 AM. Electronically signed and approved by: Jake Penn M.D. Radiologis
== END | disposition home or self-care (01) ==
LOC: RADMAMWWP 08:37
PROVIDERS: ATTEND Internal Medicine
DX: Z12.31 Encounter for screening mammogram for malignant neoplasm of breast
CPT/HCPCS: 77063; 77067

== ENCOUNTER → 2023-12-28 | Outpatient (CLI) | payer MEDICARE ==
[2023-12-28 15:09] LABS: HCT 38.6 % (37.2-46.3); HGB 12.4 g/dL (12.0-15.0); MCH 29.8 pg (27.0-32.0); MCHC 32.1 g/dL (32.0-37.0); MCV 92.8 FL (80.0-97.0); Mean Platelet Volume 10.4 FL (9.5-12.2); NRBC Per 100 WBC 0 X 10*3/uL (0.00-0.01); Platelet Count 275 X 10*3/uL (140-440); RBC 4.16 X 10*6/uL (4.10-5.20); RDW 12.3 % (11.5-14.5); WBC 5.64 X 10*3/uL (4.50-10.00)
[2023-12-28 15:20] LABS: Blood Urea Nitrogen 23.8 mg/dL (9.0-27.0); Carbon Dioxide 25.7 mmol/L (21.6-31.8); Chloride 108 mmol/L (96-109); Potassium 4.9 mmol/L (3.5-5.5); Sodium 144 mmol/L (135-145)
== END | disposition home or self-care (01) ==
LOC: LABPAT 09:25
PROVIDERS: ATTEND Internal Medicine Interventional Cardiology
DX: Z01.818 Encounter for other preprocedural examination (principal); R94.39 Abnormal result of other cardiovascular function study
CPT/HCPCS: 36415; 80051; 82565; 84520; 85027

== ENCOUNTER 2024-01-04 07:11 | Day surgery (SDC) | payer MEDICARE ==
[2023-12-31 14:54] VITALS: BMI 27.8
[~2024-01-04 07:11] MED LIST changes: +ALPRAZolam 0.25 MG TAB PO PRN; +ALPRAZolam 0.5 MG TAB PO PRN; -AMINOPHYLLINE 500 MG/20 ML VIAL IV ONE; +NITROGLYCERIN SL TABS 0.4 MG TAB SUBLINGUAL PRN; -REGADENOSON 0.4 MG/5 ML SYRINGE IV PRN
[2024-01-04 07:42] VITALS: RESP 16; TEMP 97.8
[2024-01-04] MEDS: SODIUM CHLORIDE 0.9% 1,000 ML in EMPTY BAG 1 BAG IV ONE (07:45)
[2024-01-04] MEDS: ASPIRIN 325 MG TAB PO ONE (08:24)
[2024-01-04] MEDS: ATORVASTATIN 80 MG TAB PO ONE (08:25)
[2024-01-04] MEDS: SODIUM CHLORIDE 0.9% 1,000 ML IV ONE (09:14)
[2024-01-04] MEDS: fentaNYL (PF) 50 MCG/1 ML VIAL IVP ONE (09:14)
[2024-01-04] MEDS: HEPARIN SODIUM,PORCINE (1 ML) 2,500 UNIT in SODIUM CHLORIDE 0.9% 250 ML IRRIGATION PRN (09:14)
[2024-01-04] MEDS: HEPARIN SODIUM,PORCINE 10,000 UNIT in SODIUM CHLORIDE 0.9% 1,000 ML IRRIGATION PRN (09:14)
[2024-01-04] MEDS: LIDOCAINE 1% INJ 10MG/ML (20 ML MDV) SQ ONE (09:17)
[2024-01-04] MEDS: VERAPAMIL SYRINGE (5 MG/10 ML) INTRAARTER ONE (09:19)
[2024-01-04] MEDS: HEPARIN SODIUM 1,000 UN/ML (10ML VL) IVP ONE (09:20)
[2024-01-04] MEDS: IOPAMIDOL-370 100ML BTL INJ ONE (09:27)
[2024-01-04] MEDS ORDERED: RX INFO: IV CONTRAST WAS GIVEN 1 EACH MISC MISCELLANE PRN (09:41)
[2024-01-04] MEDS ORDERED: SODIUM CHLORIDE 0.9% 1,000 ML IV SCH (09:45)
--- NOTE | 2024-01-04 09:46 | P.CARDCATH ---
Date of Procedure: 01/04/24 Description of Procedure: Cardiac Catheterization: The patient is a 73-year-old female with known history of hypertension, hyperlipidemia, history of CAD status post stenting of the RCA in May 2021 who has been complaining of exertional dyspnea on exertion, progressive with progressive fatigue and had an abnormal MPI. Recommendations were made regarding cardiac catheterization, the risks and the complications were discussed with the patient who is in full understanding and agreement. Procedure Description: Patient was brought to yard laborer in fasting semi-sedated state after receiving Fentanyl and Benadryl achieiving moderate conscious sedated state. Using Xylocaine Anesthesia and modified Seldinger technique, a 6-Swedish sheath was introduced in the right radial artery . Subsequently, selective coronary angiography was performed using a 5-Swedish 3.5 bend Edward catheter. Multiple views of the coronary artery including hemiaxial views were obtained. The 5 Swedish pigtail catheter was used to cross the aortic valve and LVEDP was calculated. Following that, catheter and sheath were removed. Hemostasis was obtained with deployment of vascular band . There was no immediate complication. Patient was returned to room in stable condition. Of note, the patient received a total of 4000 units of intravenous heparin as well as intra-arterial verapamil. Findings: Left main: This is a short size vessel, bifurcating into LAD and left circumflex, left main has no obstructive disease LAD: This is a large size vessel, reaching to the apex, tortuous in the mid segment, giving rise to small diagonal branch. The proximal LAD has 20 to 30% tubular lesion, the rest of the vessel has no high-grade stenosis. Left circumflex: This is a large nondominant vessel giving rise to a large obtuse marginal branch, the left circumflex and its branches have no obstructive disease. RCA: This is a large dominant vessel, bifurcating distally to PDA and PLV. The RCA has a superior takeoff. The stented segment in the mid RCA is patent with no evidence of in-stent restenosis. There is a 20% plaque proximal to the stent, the rest of the vessel has no high-grade stenosis Left Ventriculogram: Not performed Hemodynamics: There was no gradient across the aortic valve, LVEDP was 14-16 mmHg Conclusion: 1. Patent stent in the RCA with mild plaque proximal to the stent 2. Mild disease in the proximal LAD 3. No obstructive disease in the left circumflex 4. Right dominance Recommendations: I have recommended to continue medical therapy with the aggressive coronary risks modification initiated, at this time I see no significant progression of disease. The findings and the recommendations were discussed with the patient and the family and they were in full understanding and agreement. Duration of sedation is 12 minutes.
[2024-01-04 14:09] VITALS: BP 133/71; PULSE 68
[2024-01-04] MEDS ORDERED: ATORVASTATIN 40 MG TAB PO SCH (21:00)
[2024-01-05] MEDS ORDERED: ASPIRIN 81 MG PO SCH (09:00)
[2024-01-05] MEDS ORDERED: VALSARTAN 80 MG TAB PO SCH (09:00)
== END 2024-01-04 13:50 | disposition home or self-care (01) ==
LOC: CATHCVL 07:11
PROVIDERS: ATTEND Internal Medicine Interventional Cardiology
DX: I25.10 Atherosclerotic heart disease of native coronary artery without angina pectoris (principal); I10 Essential (primary) hypertension; E78.2 Mixed hyperlipidemia; I65.21 Occlusion and stenosis of right carotid artery; M19.90 Unspecified osteoarthritis, unspecified site; Z95.5 Presence of coronary angioplasty implant and graft; Z88.0 Allergy status to penicillin; Z88.1 Allergy status to other antibiotic agents; Z88.5 Allergy status to narcotic agent; Z91.040 Latex allergy status; Z88.6 Allergy status to analgesic agent; Z88.8 Allergy status to other drugs, medicaments and biological substances; Z87.891 Personal history of nicotine dependence; Z79.82 Long term (current) use of aspirin; Z79.899 Other long term (current) drug therapy
CPT/HCPCS: 93458; 99152; J1644 ×3; J2003; Q9967; J3010